=== PATIENT | male | born 1965 | race Two or more races ===

== ENCOUNTER 2025-05-18 12:20 | Inpatient (IN) | payer OTHER ==
[~2025-05-18] VITALS: Ht 274.3 cm; Wt 98.9 kg
[~2025-05-18 12:20] MED LIST: ATROVENT 00.5 MG/2.5 IH; CLONAZEPAM2 MG; EFFEXOR XR37.5 MG; PROVENTIL3 ML/2.5 M IH; RESTORIL30 MG; SINGULAIR 10MG10 MG PO
--- NOTE | 2025-05-18 14:03 | NUR ---
PACIENTE ALERTA Y ORIENTADO X3 REFIERE DOLOR DE BRIAN Y INFAMACION EN EXTREMIDADES INFERIORES. SE MIDE S/V Y SE UBICA PARA SER EVALUADO.
[2025-05-18] MEDS ORDERED: DEXAMETHASONE SODIUM PHOSPHATE 4 MG/ML VIAL IM STA (14:19)
[2025-05-18] MEDS ORDERED: KETOROLAC TROMETHAMINE 30 MG VIAL IM STA (14:19)
[2025-05-18] MEDS ORDERED: KETOROLAC TROMETHAMINE 30 MG VIAL ONE (14:59)
[2025-05-18] MEDS ORDERED: DEXAMETHASONE SODIUM PHOSPHATE 4 MG/ML VIAL ONE (15:00)
[2025-05-18 15:17] LABS: BASO % 0.5 % (0.1-1.2); EOS # 0.14 (0.04-0.54); EOS % 2.5 % (0.7-7.0); LYMPH # 1.34 (1.18-3.74); LYMPH % 24.1 % (19.3-53.1); MEAN PLATELET VOLUME 9.40 fl (9.4-12.4); MONO # 0.59 (0.24-0.82); MONO % 10.6 % (4.7-12.5); NEUT # 3.45 (1.56-6.13); NEUT % 62.1 % (34.0-71.1); RED CELL DISTRIBUTION WIDTH 13.8 % (11.6-14.4)
--- NOTE | 2025-05-18 15:17 | NUR ---
SE EDUCA PTE SOBRE TX Y JEFFY REFIERE ENTENDER Y ACEPTAR. SE PROCEDE A COOLECTAR MUESTRAS DE LABORATORIO BAJO MEDIDAS ASEPTICAS Y SE ADMINISTRAN MEDICAMENTOS YAMILET ORDEN MEDICA.
[2025-05-18 15:58] LABS: BUN CREA RATIO 14.0 (7.0-25.0); CREATININE SERUM 1.15 mg/dL (0.70-1.30); GFR 64.87; GLUCOSE FASTING 112.0 mg/dL (65-100); OSMOLALITY SERUM 289.0 MOSM/KG (275-295)
--- NOTE | 2025-05-18 16:43 | NUR ---
SE COLECTAN MUESTRAS DE LABORATORIO BAJO MEDIDAS ASEPTICAS Y SE CANALIZA PTE EN RA. SE ADMINISTRAN MEDICAMENTOS YAMILET ORDEN MEDICA. SE UBICA PTE EN PASILLO.
[2025-05-18 17:19] LABS: INR 1.28
[2025-05-18] MEDS ORDERED: ATORVASTATIN CALCIUM 40 MG TABLET PO STA (18:49)
[2025-05-18] MEDS ORDERED: ASPIRIN 325 MG TABLET PO STA (18:49)
[2025-05-18 18:50] LABS: URINE APPEARANCE Clear; URINE BILIRRUBIN Small (NEGATIVE); URINE BLOOD Negative; URINE COLOR Dark Yellow; URINE GLUCOSE Negative (NEGATIVE); URINE KETONE Trace (NEGATIVE); URINE LEUKOCYTE Trace; URINE NITRATE Negative; URINE UROBILINOGEN 1.0 E.U./dl
[2025-05-18] MEDS ORDERED: ENOXAPARIN SODIUM 100 MG/ML SYRINGE SUBCUTANEO STA (18:51)
[2025-05-18 18:52] LABS: URINE BACTERIA 26.3 uL (0.0-1933); URINE CAST 2.83 uL (0.0-1.40); URINE EPITHELIAL CELLS 12.5 uL (0.0-38.8); URINE RBC 4.5 uL (0.0-20.8); URINE WBC 3.9 uL (0.0-23.2)
[2025-05-18] MEDS ORDERED: NITROGLYCERIN 0.4 MG TAB.SUBL SL PRN (19:00)
[2025-05-18 19:24] LABS: URINE PROTEIN 300 (NEGATIVE)
--- NOTE | 2025-05-18 19:27 | NUR ---
PTE REUSA COLECCION DE MUESTRAS DE INFLUENZA Y COVID.
[2025-05-18] MEDS ORDERED: FAMOTIDINE/PF 20 MG in 0.9 % SODIUM CHLORIDE 100 ML IV SCH (19:40)
[2025-05-18] MEDS ORDERED: ONDANSETRON HCL 4 MG in 0.9 % SODIUM CHLORIDE 50 ML IV PRN (19:45)
[2025-05-18] MEDS ORDERED: INSULIN LISPRO 1,000 UNIT/10 ML UNITS SUBCUTANEO PRN (19:45)
[2025-05-18] MEDS ORDERED: DEXTROSE 50 % IN WATER 0.5 G/ML DISP.SYRIN IV PRN (19:45)
[2025-05-18] MEDS ORDERED: NITROGLYCERIN IN 5 % DEXTROSE 250 ML IV SCH (19:45)
[2025-05-18] MEDS ORDERED: FAMOTIDINE/PF 20 MG/2 ML VIAL ONE (19:49)
[2025-05-18] MEDS ORDERED: NITROGLYCERIN IN 5 % DEXTROSE 50 MG/250 ML BOTTLE IV ONE (20:14)
[2025-05-18] MEDS ORDERED: CLONAZEPAM 0.5 MG TABLET PO ONE (21:15)
[2025-05-18 22:03] VITALS: BP 162/96; O2SAT 95
[2025-05-18 23:00] VITALS: BP 138/89; O2SAT 99
[2025-05-18] MEDS ORDERED: ACETAMINOPHEN 500 MG GEL..CAP PO ONE (23:29)
[2025-05-19] VITALS (9 sets, daily range): BP systolic 137–145; BP diastolic 83–93; O2SAT 96–100
[2025-05-19 06:49] LABS: BASO % 0.3 % (0.1-1.2); EOS # 0.00 (0.04-0.54); EOS % 0.0 % (0.7-7.0); LYMPH # 0.67 (1.18-3.74); LYMPH % 19.3 % (19.3-53.1); MEAN PLATELET VOLUME 10.10 fl (9.4-12.4); MONO # 0.26 (0.24-0.82); MONO % 7.5 % (4.7-12.5); NEUT # 2.52 (1.56-6.13); NEUT % 72.3 % (34.0-71.1); RED CELL DISTRIBUTION WIDTH 13.6 % (11.6-14.4)
[2025-05-19 07:15] LABS: INR 1.33
[2025-05-19 07:25] LABS: BUN CREA RATIO 16.0 (7.0-25.0); CREATININE SERUM 1.05 mg/dL (0.70-1.30); GFR 72.05; GLUCOSE FASTING 138.0 mg/dL (65-100); OSMOLALITY SERUM 291.0 MOSM/KG (275-295); TSH 0.483 uIU/mL (0.358-3.74)
[2025-05-19] MEDS ORDERED: ACETAMINOPHEN 500 MG GEL..CAP PO ONE (08:22)
[2025-05-19] MEDS ORDERED: VENLAFAXINE HCL 150 MG CAP.ER.24H PO SCH (17:00)
[2025-05-19] MEDS ORDERED: CLONAZEPAM 1 MG TABLET PO SCH ×2 (19:33→20:06)
[2025-05-19] MEDS ORDERED: KETOROLAC TROMETHAMINE 30 MG VIAL IV PRN ×2 (20:15)
[2025-05-20] VITALS (8 sets, daily range): BP systolic 138–143; BP diastolic 91–102; O2SAT 97–99
[2025-05-20] MEDS ORDERED: VENLAFAXINE HCL 150 MG CAP.ER.24H PO SCH (09:37)
[2025-05-20] MEDS ORDERED: ACETAMINOPHEN 500 MG GEL..CAP PO PRN (09:45)
[2025-05-20] MEDS ORDERED: CLONAZEPAM 1 MG TABLET PO SCH (21:00)
[2025-05-21] VITALS (9 sets, daily range): BP systolic 126–133; BP diastolic 85–98; O2SAT 98–100
[2025-05-21] MEDS ORDERED: METOPROLOL SUCCINATE 25 MG TAB.SR.24H PO SCH (09:28)
[2025-05-22] VITALS (7 sets, daily range): BP systolic 107–122; BP diastolic 78–87; O2SAT 90–100
[2025-05-23] VITALS (8 sets, daily range): BP systolic 115–129; BP diastolic 85–89; O2SAT 96–100
[2025-05-23] MEDS ORDERED: LISINOPRIL 10 MG TABLET PO SCH (09:00)
[2025-05-23] MEDS ORDERED: KETOROLAC TROMETHAMINE 30 MG VIAL IV PRN (14:00)
[2025-05-23] MEDS ORDERED: FAMOTIDINE/PF 20 MG in 0.9 % SODIUM CHLORIDE 100 ML IV SCH (21:00)
[2025-05-24] VITALS (9 sets, daily range): BP systolic 109–131; BP diastolic 84–90; O2SAT 96–100
[2025-05-25] VITALS (7 sets, daily range): BP systolic 114–118; BP diastolic 81–84; O2SAT 96–100
== END 2025-05-25 16:30 | disposition home or self-care (01) | DRG 272 ==
LOC: ER 12:21 → ICU-2 21:47 → MEDJ 05-19 19:03
PROVIDERS: General Practice; ADMIT Internal Medicine; ATTEND Internal Medicine
PROC: B246ZZZ Ultrasonography of Right and Left Heart (ICD-10-PCS; 2025-05-18)
PROC: 4A12X4Z Monitoring of Cardiac Electrical Activity, External Approach (ICD-10-PCS; 2025-05-19)
PROC: X2U4079 Supplement Coronary Artery/Arteries with Vein Graft Extraluminal Support Device(s), Open Approach, New Technology Group 9 (ICD-10-PCS; principal; 2025-05-22)
PROC: B206YZZ Plain Radiography of Right and Left Heart using Other Contrast (ICD-10-PCS; 2025-05-22)
PROC: 4A023N8 Measurement of Cardiac Sampling and Pressure, Bilateral, Percutaneous Approach (ICD-10-PCS; 2025-05-22)
DX: I21.4 Non-ST elevation (NSTEMI) myocardial infarction (principal); I50.9 Heart failure, unspecified; I34.0 Nonrheumatic mitral (valve) insufficiency